=== PATIENT | male | born 1955 | race Caucasian/White ===

== ENCOUNTER 2017-10-19 14:00 | Emergency (ER) | payer OTHER ==
[2017-10-19 14:11] VITALS: RESP 18
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
[2017-10-19 15:57] VITALS: BP 149/87; PULSE 78; TEMP 98.4
[2017-10-19 16:20] VITALS: O2SAT 97
== END 2017-10-19 16:06 | disposition home or self-care (01) ==
LOC: C.ER 14:00
DX: S00.83XA Contusion of other part of head, initial encounter (principal); S00.81XA Abrasion of other part of head, initial encounter; Y04.0XXA Assault by unarmed brawl or fight, initial encounter; Y92.89 Other specified places as the place of occurrence of the external cause; Y99.0 Civilian activity done for income or pay